=== PATIENT | female | born 1955 | race Caucasian/White ===

== ENCOUNTER → 2016-10-02 | Outpatient (CLI) | payer BC ==
[~2016-10-02] MED LIST: ADVIL,NUPRIN,M200 MG PO; CLARITIN,ALAVAR10 MG PO; FLONASE ALLERG9.9 ML BOTH NARES; KLONOPIN0.5 M1 PO; MACRODANTIN50 M1 PO; PROTONIX40 MG PO; PROVENTIL,2.5 MG/3 M IH; SINGULAIR10 MG PO; SYMBICORT60 INHALAT IH; VENTOLIN HFA18 GM IH
== END | disposition home or self-care (01) ==
DX: R13.10 Dysphagia, unspecified (principal)
CPT/HCPCS: 92611 GN

== ENCOUNTER → 2017-01-23 | Outpatient (CLI) | payer BC | END | disposition home or self-care (01) | LOC: CDC 09:44 | DX: Z01.810 Encounter for preprocedural cardiovascular examination (principal) | CPT/HCPCS: 93000 ==